=== PATIENT | male | born 1950 | race Caucasian/White ===

== ENCOUNTER 2018-04-24 11:00 | Inpatient (IN) ==
[2018-04-24] MEDS ORDERED: LACTULOSE 20 GM/30 ML UDCUP PO PRN (11:16)
[2018-04-24] MEDS ORDERED: ZALEPLON 5 MG CAPSULE PO PRN (11:16)
[2018-04-24] MEDS ORDERED: PROMETHAZINE 25 MG TABLET PO PRN (11:16)
[2018-04-24] MEDS ORDERED: ACETAMINOPHEN 325 MG TABLET PO PRN (11:16)
[2018-04-24] MEDS ORDERED: diphenhydrAMINE CAP 25 MG CAPSULE PO PRN (11:16)
[2018-04-24] MEDS ORDERED: DOCUSATE SODIUM 100 MG CAPSULE PO PRN (11:16)
[2018-04-24] MEDS ORDERED: MORPHINE 4 MG/1 ML VIAL IV PRN (11:16)
[2018-04-24] MEDS ORDERED: ONDANSETRON 4 MG/2 ML VIAL IV PRN (11:16)
[2018-04-24] MEDS ORDERED: guaiFENesin/DM ER 600-30 MG TABLET PO PRN (11:16)
[2018-04-24] MEDS ORDERED: MAGNESIUM SULF RIDER 2 GM in PREMIX 1 EACH IV PRN (11:16)
[2018-04-24] MEDS ORDERED: MAGNESIUM SULF RIDER 4 GM in PREMIX 1 EACH IV PRN (11:16)
[2018-04-24] MEDS ORDERED: BISACODYL 5 MG TABLET PO PRN (11:16)
[2018-04-24] MEDS ORDERED: POTASSIUM CHLORIDE 20 MEQ TABLET PO PRN (11:16)
[2018-04-24 12:21] LABS: Troponin I 0.016 NG/ML (0.00-0.045)
[2018-04-24] MEDS ORDERED: ceFAZolin 1,000 MG VIAL IRRIG ONE (12:24)
[2018-04-24] MEDS ORDERED: diphenhydrAMINE CAP 25 MG CAPSULE PO ONE (12:24)
[2018-04-24] MEDS ORDERED: DIAZEPAM 5 MG TABLET PO ONE (12:24)
[2018-04-24 12:29] LABS: Bilirubin,Total 0.7 MG/DL (0.2-1.0); Calcium 9.2 MG/DL (8.5-10.1); Potassium 5.1 MMOL/L (3.5-5.1); Risk Ratio 5.97; Thyroid Stimulating Hormone 3.83 uIU/ml (0.358-3.74); Total Protein 7.6 G/DL (6.4-8.3); VLDL CHOLESTEROL 47.6 MG/DL
[2018-04-24] MEDS ORDERED: DEXTROSE 5% NACL 0.45% 1,000 ML IV SCH (12:30)
[2018-04-24 13:39] LABS: Apearance,Urine CLEAR (Clear); Bilirubin,Urine Negative (Negative); Blood, Urine Small mg/dL (Negative); Glucose,Urine (UA) Negative (Negative); Hyaline Casts,Urine 1 /LPF (0-3); Ketones,Urine Negative (Negative); Nitrite,Urine Negative (Negative); Protein,Urine Negative; RBC,Urine <1 /HPF (0-4); Urine Color Straw (Yellow); Urine Specific Gravity 1.006 (1.001-1.035); Urine Urobilinogen < 2.0 EU/DL (0.2-1.0)
[2018-04-24] MEDS: ceFAZolin 1,000 MG in SYRINGE 1 EACH IV ONE ×2 (13:58→15:19)
[2018-04-24 14:30] LABS: Basophils # 0.1 10*3/uL (0.0-0.2); Basophils % 0.3 % (0.0-0.8); Eosinophils # 0.2 10*3/uL (0.0-0.87); Eosinophils % 1.1 % (0.00-10.9); Hematocrit 44.4 VOL% (42.0-52.0); Hemoglobin 13.9 GM/DL (14.0-18.0); Immature Granulocytes % 0.7 %; Immature Granulocytes Absolute 0.12 #; Lymphocytes # 3.3 10*3/uL (1.4-4.0); Lymphocytes % 19.2 % (21.2-54.2); Mean Corpuscular HGB Conc 31.3 GM/DL (32-36); Mean Corpuscular Hemoglobin 30 PG (27-34); Mean Corpuscular Volume 96.3 FL (87-102); Mean Platelet Volume 11.9 FL (9.6-12.0); Neutrophils # 12.6 10*3/uL (1.4-7.4); Neutrophils % 72.7 % (38.7-73.9); Platelet Count 268 T/CUMM (130-400); Red Blood Count 4.61 MC/CUMM (3.8-5.5); Red Cell Distribution Width 15.1 % (9.3-17.3); White Blood Count 17.3 T/CUMM (4-12)
[2018-04-24] MEDS ORDERED: LIDOCAINE 1%/EPI INJ 20 ML VIAL ONE (14:35)
[2018-04-24] MEDS ORDERED: HEPARIN/NACL 0.9% 2 UNITS/ML 500 ML IV ONE (14:35)
[2018-04-24] MEDS ORDERED: MIDAZOLAM 2 MG/2 ML VIAL ONE (14:42)
[2018-04-24] MEDS ORDERED: fentaNYL 100 MCG/2 ML VIAL ONE (14:43)
[2018-04-24] MEDS ORDERED: hydrALAZINE 20 MG/1 ML VIAL IV PRN (16:15)
[2018-04-25 03:42] LABS: Basophils % 0.3 % (0.0-0.8); Eosinophils # 0.1 10*3/uL (0.0-0.87); Eosinophils % 1.2 % (0.00-10.9); Hematocrit 43.1 VOL% (42.0-52.0); Hemoglobin 13.5 GM/DL (14.0-18.0); Immature Granulocytes % 0.4 %; Immature Granulocytes Absolute 0.04 #; Lymphocytes # 2.6 10*3/uL (1.4-4.0); Mean Corpuscular HGB Conc 31.3 GM/DL (32-36); Mean Corpuscular Hemoglobin 30 PG (27-34); Mean Corpuscular Volume 96.4 FL (87-102); Monocytes # 0.9 10*3/uL (0.11-0.8); Monocytes % 7.5 % (1.7-12.7); Neutrophils # 7.7 10*3/uL (1.4-7.4); Neutrophils % 67.6 % (38.7-73.9); Platelet Count 185 T/CUMM (130-400); Red Blood Count 4.47 MC/CUMM (3.8-5.5); Red Cell Distribution Width 15.1 % (9.3-17.3); White Blood Count 11.4 T/CUMM (4-12)
[2018-04-25 04:08] LABS: Troponin I 0.053 NG/ML (0.00-0.045)
[2018-04-25 04:23] LABS: Calcium 8.8 MG/DL (8.5-10.1); Osmolality,Calculated 285.4 MOS/KG (273-304); Potassium 4.2 MMOL/L (3.5-5.1)
[2018-04-25] MEDS ORDERED: TORSEMIDE 20 MG TABLET PO SCH (09:00)
[2018-04-25] MEDS ORDERED: LISINOPRIL 20 MG TABLET PO SCH (09:00)
[2018-04-25] MEDS ORDERED: POTASSIUM CHLORIDE 10 MEQ TABLET PO SCH (09:00)
[2018-04-25] MEDS ORDERED: ALLOPURINOL 300 MG TABLET PO SCH (09:00)
[2018-04-25] MEDS ORDERED: CLOPIDOGREL 75 MG TABLET PO SCH (09:00)
[2018-04-25] MEDS ORDERED: PANTOPRAZOLE 40 MG TABLET PO SCH (09:00)
[2018-04-25] MEDS ORDERED: ASPIRIN EC 325 MG TABLET PO SCH (09:00)
[2018-04-25] MEDS ORDERED: NIACIN 500 MG TABLET PO SCH (09:00)
[2018-04-25 11:43] VITALS: BP 151/59
== END 2018-04-25 11:02 | disposition home or self-care (01) | DRG 244 ==
LOC: N.CC 11:24
PROVIDERS: ADMIT Internal Medicine Cardiovascular Disease; ATTEND Internal Medicine Cardiovascular Disease

== ENCOUNTER 2019-10-05 08:21 | Inpatient (IN) ==
[2019-10-05] MEDS ORDERED: propofoL 200 MG/20 ML VIAL IV ONE ×2 (08:56→14:52)
[2019-10-05 09:00] LABS: Basophils # 0.1 10*3/uL (0.0-0.2); Basophils % 0.5 % (0.0-0.8); Eosinophils # 0.3 10*3/uL (0.0-0.87); Hematocrit 48.7 VOL% (42.0-52.0); Hemoglobin 15.5 GM/DL (14.0-18.0); Immature Granulocytes % 1.1 %; Immature Granulocytes Absolute 0.16 #; Lymphocytes # 4.6 10*3/uL (1.4-4.0); Mean Corpuscular HGB Conc 31.8 GM/DL (32-36); Mean Corpuscular Volume 96.2 FL (87-102); Mean Platelet Volume 10.1 FL (9.6-12.0); Neutrophils % 58.4 % (38.7-73.9); Platelet Count 252 T/CUMM (130-400); Red Blood Count 5.06 MC/CUMM (3.8-5.5); Red Cell Distribution Width 14.9 % (9.3-17.3); White Blood Count 14.7 T/CUMM (4-12)
[2019-10-05 09:10] LABS: PT Patient Result 10.3 SECS (9.8-11.9); Partial Thromboplastin Time 29.9 SECS (23.9-33.8)
[2019-10-05 09:20] LABS: Albumin 3.7 G/DL (3.4-5.0); Bilirubin,Total 0.6 MG/DL (0.2-1.0); Calcium 9.4 MG/DL (8.5-10.1); Osmolality,Calculated 266.5 MOS/KG (273-304); Total Protein 7.9 G/DL (6.4-8.3)
[2019-10-05] MEDS ORDERED: DIPH/TET/ACEL PERT BOOSTER VACCINE 0.5 ML VIAL IM ONE (09:20)
[2019-10-05] MEDS ORDERED: MORPHINE 4 MG/1 ML VIAL IV PRN ×2 (09:23)
[2019-10-05] MEDS ORDERED: ceFAZolin 2,000 MG in SYRINGE 1 EACH IV STA (09:38)
[2019-10-05] MEDS: LACTATED RINGERS 1,000 ML IV SCH ×2 (09:57→23:37)
[2019-10-05] MEDS ORDERED: SODIUM CHLORIDE 0.9% IV ONE (10:00)
[2019-10-05] MEDS ORDERED: GENTAMICIN IV ONE (10:00)
[2019-10-05] MEDS ORDERED: GENTAMICIN 80 MG/2 ML VIAL ONE (12:26)
[2019-10-05] MEDS ORDERED: LIDOCAINE 1% 5 ML VIAL ONE (13:36)
[2019-10-05] MEDS ORDERED: ROPIVACAINE 0.5% 30 ML VIAL ONE (13:36)
[2019-10-05] MEDS ORDERED: BACITRACIN OINT 0.9 GM PACK TOP ONE (13:38)
[2019-10-05] MEDS ORDERED: ONDANSETRON 4 MG/2 ML VIAL IV PRN ×2 (14:00→14:42)
[2019-10-05] MEDS ORDERED: MAGNESIUM HYDROXIDE SUSP 30 ML UDCUP PO PRN (14:00)
[2019-10-05] MEDS ORDERED: diphenhydrAMINE CAP 25 MG CAPSULE PO PRN (14:00)
[2019-10-05] MEDS ORDERED: HYDROmorphone 2 MG/1 ML VIAL ONE (14:41)
[2019-10-05] MEDS ORDERED: ONDANSETRON 4 MG/2 ML VIAL ONE ×2 (14:41→14:53)
[2019-10-05] MEDS ORDERED: HYDROmorphone 2 MG/1 ML VIAL IV PRN (14:42)
[2019-10-05] MEDS ORDERED: SEVOFLURANE 1 UNIT/15 MINUTE INH ONE (14:52)
[2019-10-05] MEDS ORDERED: PHENYLEPHRINE DRIP 20 MG/250 ML PREMIX IV ONE (14:52)
[2019-10-05] MEDS ORDERED: LIDOCAINE 2% 5 ML VIAL ONE (14:52)
[2019-10-05] MEDS ORDERED: DEXAMETHASONE 4 MG/1 ML VIAL ONE (14:53)
[2019-10-05] MEDS ORDERED: fentaNYL 100 MCG/2 ML VIAL ONE (14:53)
[2019-10-05] MEDS ORDERED: ePHEDrine 50 MG/ML AMP ONE (14:53)
[2019-10-05] MEDS ORDERED: MIDAZOLAM 2 MG/2 ML VIAL ONE (14:53)
[2019-10-05] MEDS ORDERED: KETOROLAC 30 MG/1 ML VIAL ONE (14:53)
[2019-10-05] MEDS ORDERED: PHENYLEPHRINE 1 MG/10 ML SYRINGE IV ONE (14:54)
[2019-10-05] MEDS ORDERED: ACETAMINOPHEN 1,000 MG/100 ML VIAL IV ONE (14:54)
[2019-10-05] MEDS ORDERED: LACTATED RINGERS 1,000 ML IV ONE (14:54)
[2019-10-05] MEDS ORDERED: ALBUTEROL/IPRATROPIUM 3 ML NEB RESP TX PRN (15:03)
[2019-10-05] MEDS ORDERED: ALBUTEROL/IPRATROPIUM 3 ML NEB RESP TX ONE (15:03)
[2019-10-05] MEDS: ceFAZolin 2,000 MG in PREMIX 1 EACH IV SCH (17:47)
[2019-10-05] MEDS: carvediloL 25 MG TABLET PO SCH (20:31)
[2019-10-06] MEDS: ceFAZolin 2,000 MG in PREMIX 1 EACH IV SCH ×3 (01:02→16:19)
[2019-10-06] MEDS: LACTATED RINGERS 1,000 ML IV SCH (03:05)
[2019-10-06 05:51] LABS: Basophils % 0.1 % (0.0-0.8); Hematocrit 41.1 VOL% (42.0-52.0); Hemoglobin 12.9 GM/DL (14.0-18.0); Immature Granulocytes % 0.8 %; Immature Granulocytes Absolute 0.13 #; Lymphocytes # 1.9 10*3/uL (1.4-4.0); Lymphocytes % 11.6 % (21.2-54.2); Mean Corpuscular HGB Conc 31.4 GM/DL (32-36); Mean Corpuscular Volume 98.3 FL (87-102); Mean Platelet Volume 10.1 FL (9.6-12.0); Monocytes % 8.6 % (1.7-12.7); Neutrophils % 78.9 % (38.7-73.9); Platelet Count 197 T/CUMM (130-400); Red Blood Count 4.18 MC/CUMM (3.8-5.5); Red Cell Distribution Width 14.9 % (9.3-17.3); White Blood Count 16.7 T/CUMM (4-12)
[2019-10-06 06:08] LABS: Calcium 8.6 MG/DL (8.5-10.1); Osmolality,Calculated 270.2 MOS/KG (273-304)
[2019-10-06] MEDS: carvediloL 25 MG TABLET PO SCH ×2 (08:16→20:54)
[2019-10-06] MEDS: TORSEMIDE 20 MG TABLET PO SCH (08:16)
[2019-10-06] MEDS: POTASSIUM CHLORIDE 10 MEQ TABLET PO SCH (08:16)
[2019-10-06] MEDS ORDERED: SODIUM CHLORIDE 0.9% IV SCH (10:00)
[2019-10-06] MEDS ORDERED: GENTAMICIN IV SCH (10:00)
[2019-10-07] MEDS: LACTATED RINGERS 1,000 ML IV SCH ×3 (00:47→09:57)
[2019-10-07] MEDS: ceFAZolin 2,000 MG in PREMIX 1 EACH IV SCH ×3 (01:17→17:25)
[2019-10-07 06:26] LABS: Basophils % 0.2 % (0.0-0.8); Eosinophils # 0.1 10*3/uL (0.0-0.87); Eosinophils % 0.4 % (0.00-10.9); Hematocrit 38.5 VOL% (42.0-52.0); Hemoglobin 12.3 GM/DL (14.0-18.0); Immature Granulocytes % 0.9 %; Immature Granulocytes Absolute 0.12 #; Lymphocytes # 3.1 10*3/uL (1.4-4.0); Lymphocytes % 23.1 % (21.2-54.2); Mean Corpuscular HGB Conc 31.9 GM/DL (32-36); Mean Corpuscular Volume 95.1 FL (87-102); Mean Platelet Volume 10.3 FL (9.6-12.0); Neutrophils % 63.4 % (38.7-73.9); Platelet Count 189 T/CUMM (130-400); Red Blood Count 4.05 MC/CUMM (3.8-5.5); Red Cell Distribution Width 15.1 % (9.3-17.3); White Blood Count 13.6 T/CUMM (4-12)
[2019-10-07 06:57] LABS: Calcium 9.2 MG/DL (8.5-10.1); Osmolality,Calculated 268.4 MOS/KG (273-304)
[2019-10-07] MEDS ORDERED: fentaNYL 100 MCG/2 ML VIAL ONE (07:22)
[2019-10-07] MEDS ORDERED: ROPIVACAINE 0.5% 30 ML VIAL ONE (07:22)
[2019-10-07] MEDS ORDERED: MIDAZOLAM 2 MG/2 ML VIAL ONE (07:22)
[2019-10-07] MEDS ORDERED: BACITRACIN OINT 0.9 GM PACK TOP ONE (08:21)
[2019-10-07] MEDS ORDERED: CLOPIDOGREL 75 MG TABLET PO SCH (09:00)
[2019-10-07] MEDS ORDERED: ASPIRIN EC 325 MG TABLET PO SCH (09:00)
[2019-10-07] MEDS ORDERED: LIDOCAINE 2% 5 ML VIAL ONE (09:13)
[2019-10-07] MEDS ORDERED: ONDANSETRON 4 MG/2 ML VIAL ONE (09:13)
[2019-10-07] MEDS ORDERED: DEXAMETHASONE 4 MG/1 ML VIAL ONE (09:13)
[2019-10-07] MEDS ORDERED: PHENYLEPHRINE 1 MG/10 ML SYRINGE IV ONE (09:13)
[2019-10-07] MEDS ORDERED: propofoL 200 MG/20 ML VIAL IV ONE (09:13)
[2019-10-07] MEDS ORDERED: SEVOFLURANE 1 UNIT/15 MINUTE INH ONE (09:14)
[2019-10-07] MEDS ORDERED: LACTATED RINGERS 1,000 ML IV ONE (09:14)
[2019-10-07] MEDS: ASPIRIN CHEW 81 MG TABLET PO SCH (10:07)
[2019-10-07] MEDS: NIACIN 500 MG TABLET PO SCH (10:07)
[2019-10-07] MEDS: lisinopriL 20 MG TABLET PO SCH (10:07)
[2019-10-07] MEDS: carvediloL 25 MG TABLET PO SCH ×2 (10:07→21:10)
[2019-10-07] MEDS: allopurinoL 300 MG TABLET PO SCH (10:08)
[2019-10-07] MEDS: POTASSIUM CHLORIDE 10 MEQ TABLET PO SCH (10:08)
[2019-10-07] MEDS: TORSEMIDE 20 MG TABLET PO SCH ×3 (10:14→21:09)
[2019-10-07] MEDS: SODIUM CHLORIDE 0.9% IV SCH (21:10)
[2019-10-07] MEDS: GENTAMICIN IV SCH (21:10)
[2019-10-08] MEDS: ceFAZolin 2,000 MG in PREMIX 1 EACH IV SCH ×3 (00:59→17:25)
[2019-10-08 05:47] LABS: Basophils % 0.1 % (0.0-0.8); Hemoglobin 11.7 GM/DL (14.0-18.0); Immature Granulocytes % 0.7 %; Lymphocytes # 2.4 10*3/uL (1.4-4.0); Lymphocytes % 16.6 % (21.2-54.2); Mean Corpuscular HGB Conc 31.6 GM/DL (32-36); Mean Corpuscular Volume 97.4 FL (87-102); Mean Platelet Volume 10.4 FL (9.6-12.0); Monocytes % 9.6 % (1.7-12.7); Platelet Count 197 T/CUMM (130-400); Red Cell Distribution Width 14.8 % (9.3-17.3); White Blood Count 14.2 T/CUMM (4-12)
[2019-10-08] MEDS: allopurinoL 300 MG TABLET PO SCH (09:30)
[2019-10-08] MEDS: ASPIRIN CHEW 81 MG TABLET PO SCH (09:30)
[2019-10-08] MEDS: TORSEMIDE 20 MG TABLET PO SCH ×2 (09:30→20:46)
[2019-10-08] MEDS: lisinopriL 20 MG TABLET PO SCH (09:31)
[2019-10-08] MEDS: carvediloL 25 MG TABLET PO SCH ×2 (09:31→21:29)
[2019-10-08] MEDS: CLOPIDOGREL 75 MG TABLET PO SCH (09:31)
[2019-10-08] MEDS: POTASSIUM CHLORIDE 10 MEQ TABLET PO SCH (09:31)
[2019-10-08] MEDS: NIACIN 500 MG TABLET PO SCH (09:31)
[2019-10-09] MEDS: ceFAZolin 2,000 MG in PREMIX 1 EACH IV SCH ×2 (00:57→08:51)
[2019-10-09 07:50] LABS: Calcium 9.2 MG/DL (8.5-10.1); Osmolality,Calculated 273.2 MOS/KG (273-304)
[2019-10-09] MEDS: TORSEMIDE 20 MG TABLET PO SCH (08:46)
[2019-10-09] MEDS: POTASSIUM CHLORIDE 10 MEQ TABLET PO SCH (08:47)
[2019-10-09] MEDS: allopurinoL 300 MG TABLET PO SCH (08:50)
[2019-10-09] MEDS: carvediloL 25 MG TABLET PO SCH (08:50)
[2019-10-09] MEDS: ASPIRIN CHEW 81 MG TABLET PO SCH (08:50)
[2019-10-09] MEDS: NIACIN 500 MG TABLET PO SCH (08:50)
[2019-10-09] MEDS: CLOPIDOGREL 75 MG TABLET PO SCH (08:51)
[2019-10-09] MEDS: lisinopriL 20 MG TABLET PO SCH (08:57)
[2019-10-09] MEDS ORDERED: lisinopriL 2.5 MG TABLET PO SCH (09:29)
[2019-10-09] MEDS: GENTAMICIN IV SCH (09:35)
[2019-10-09] MEDS: SODIUM CHLORIDE 0.9% IV SCH (09:35)
[2019-10-09 12:55] VITALS: BP 101/57
== END 2019-10-09 15:15 | disposition home health service (06) | DRG 464 ==
LOC: N.ED 08:21 → N.EDINP 09:31 → N.3E 09:48
PROVIDERS: ADMIT Orthopaedic Surgery; ATTEND Orthopaedic Surgery

== ENCOUNTER 2021-07-12 11:25 | Inpatient (IN) ==
[2021-07-12] MEDS ORDERED: HYDROmorphone 2 MG/1 ML VIAL ONE (11:47)
[2021-07-12] MEDS ORDERED: ONDANSETRON 4 MG/2 ML VIAL ONE ×2 (11:47→18:27)
[2021-07-12] MEDS ORDERED: ONDANSETRON 4 MG/2 ML VIAL IV STA (11:52)
[2021-07-12] MEDS ORDERED: HYDROmorphone 2 MG/1 ML VIAL IV STA ×3 (11:52→14:30)
[2021-07-12 12:33] LABS: Basophils % 0.2 % (0.0-0.8); Eosinophils % 0.1 % (0.00-10.9); Hemoglobin 15.3 GM/DL (14.0-18.0); Immature Granulocytes % 0.9 %; Immature Granulocytes Absolute 0.15 #; Lymphocytes # 1.8 10*3/uL (1.4-4.0); Lymphocytes % 10.3 % (21.2-54.2); Mean Corpuscular HGB Conc 31.9 GM/DL (32-36); Mean Corpuscular Volume 91.4 FL (87-102); Mean Platelet Volume 10.3 FL (9.6-12.0); Monocytes % 7.6 % (1.7-12.7); Neutrophils % 80.9 % (38.7-73.9); Platelet Count 224 T/CUMM (130-400); Red Blood Count 5.25 MC/CUMM (3.8-5.5); Red Cell Distribution Width 16.2 % (9.3-17.3); White Blood Count 17.2 T/CUMM (4-12)
[2021-07-12 12:41] LABS: PT Patient Result 11.2 SECS (10.5-12.0)
[2021-07-12 12:46] LABS: Osmolality,Calculated 270.1 MOS/KG (273-304); Potassium 3.8 MMOL/L (3.5-5.1)
[2021-07-12] MEDS ORDERED: ONDANSETRON 4 MG/2 ML VIAL IV PRN (14:11)
[2021-07-12] MEDS ORDERED: GLUCAGON 1 MG VIAL IM PRN (14:11)
[2021-07-12] MEDS ORDERED: DEXTROSE 10% 25 GM/250 ML BAG IV PRN (14:11)
[2021-07-12] MEDS ORDERED: DICLOFENAC 1% GEL 100 GM TUBE TOP PRN (14:58)
[2021-07-12] MEDS ORDERED: VANCOMYCIN INJ 1,750 MG in SODIUM CHLORIDE 0.9% 250 ML IV ONE (16:22)
[2021-07-12] MEDS ORDERED: ceFAZolin 2,000 MG/50 ML DUPLEX IV ONE (16:23)
[2021-07-12 17:35] LABS: Bilirubin,Urine Negative (Negative); Blood, Urine Moderate mg/dL (Negative); Glucose,Urine (UA) Negative (Negative); Ketones,Urine Negative (Negative); Nitrite,Urine Negative (Negative); Protein,Urine 100 MG/DL; RBC,Urine 40 /HPF (0-4); Urine Appearance CLEAR (Clear); Urine Color Yellow (Yellow); Urine Specific Gravity 1.015 (1.001-1.035); Urine Urobilinogen < 2.0 EU/DL (<2.0)
[2021-07-12] MEDS ORDERED: HYDROmorphone 2 MG/1 ML VIAL IV ONE (18:16)
[2021-07-12] MEDS ORDERED: ROCURONIUM 50 MG/5 ML VIAL IV ONE (18:27)
[2021-07-12] MEDS ORDERED: fentaNYL 100 MCG/2 ML VIAL ONE (18:27)
[2021-07-12] MEDS ORDERED: propofoL 200 MG/20 ML VIAL IV ONE (18:27)
[2021-07-12] MEDS ORDERED: LIDOCAINE 2% 5 ML VIAL ONE (18:27)
[2021-07-12] MEDS ORDERED: SEVOFLURANE 1 UNIT/15 MINUTE INH ONE ×2 (18:27→18:31)
[2021-07-12] MEDS ORDERED: ePHEDrine 50 MG/ML VIAL ONE (18:44)
[2021-07-12] MEDS ORDERED: PHENYLEPHRINE 1 MG/10 ML SYRINGE IV ONE (18:44)
[2021-07-12] MEDS ORDERED: ceFAZolin 1,000 MG VIAL ONE ×2 (19:18→19:25)
[2021-07-12] MEDS ORDERED: VANCOMYCIN 1,000 MG VIAL ONE (19:18)
[2021-07-12] MEDS ORDERED: VANCOMYCIN INJ 1,000 MG in SODIUM CHLORIDE 0.9% 250 ML IV ONE (19:19)
[2021-07-12] MEDS ORDERED: BACITRACIN OINT 0.9 GM PACK TOP ONE (19:21)
[2021-07-12] MEDS ORDERED: DEXMEDETOMIDINE 200 MCG/2 ML VIAL ONE (19:29)
[2021-07-12] MEDS ORDERED: TRANEXAMIC ACID 1,000 MG/10 ML VIAL ONE (20:02)
[2021-07-12] MEDS ORDERED: GLYCOPYRROLATE 0.4 MG/2 ML VIAL ONE (20:09)
[2021-07-12] MEDS ORDERED: NEOSTIGMINE 10 MG/10 ML VIAL ONE (20:10)
[2021-07-12] MEDS ORDERED: MORPHINE 2 MG/1 ML SYRINGE IV PRN (20:18)
[2021-07-12] MEDS ORDERED: MAGNESIUM HYDROXIDE SUSP 30 ML UDCUP PO PRN (20:18)
[2021-07-12] MEDS ORDERED: ROSUVASTATIN 10 MG TABLET PO SCH (21:00)
[2021-07-12] MEDS: POTASSIUM CHLORIDE INJ 40 MEQ in LACTATED RINGERS 1,000 ML IV SCH (22:10)
[2021-07-12] MEDS: DOCUSATE SODIUM 100 MG CAPSULE PO SCH (22:11)
[2021-07-12] MEDS: carvediloL 25 MG TABLET PO SCH (22:12)
[2021-07-12] MEDS: TORSEMIDE 20 MG TABLET PO SCH (22:12)
[2021-07-12] MEDS: MORPHINE 2 MG/1 ML SYRINGE IV PRN (22:29)
[2021-07-13] MEDS: ceFAZolin 2,000 MG/50 ML DUPLEX IV SCH ×2 (00:52→12:30)
[2021-07-13 05:51] LABS: Basophils % 0.3 % (0.0-0.8); Eosinophils % 0.3 % (0.00-10.9); Hematocrit 42.6 VOL% (42.0-52.0); Hemoglobin 13.4 GM/DL (14.0-18.0); Immature Granulocytes % 0.9 %; Immature Granulocytes Absolute 0.13 #; Lymphocytes # 1.6 10*3/uL (1.4-4.0); Mean Corpuscular HGB Conc 31.5 GM/DL (32-36); Mean Corpuscular Volume 93.6 FL (87-102); Mean Platelet Volume 11.2 FL (9.6-12.0); Monocytes % 8.7 % (1.7-12.7); Neutrophils % 78.8 % (38.7-73.9); Platelet Count 168 T/CUMM (130-400); Red Blood Count 4.55 MC/CUMM (3.8-5.5); Red Cell Distribution Width 16.4 % (9.3-17.3); White Blood Count 14.8 T/CUMM (4-12)
[2021-07-13] MEDS: POTASSIUM CHLORIDE INJ 40 MEQ in LACTATED RINGERS 1,000 ML IV SCH (06:19)
[2021-07-13 06:29] LABS: Albumin 2.9 G/DL (3.4-5.0); Bilirubin,Total 0.6 MG/DL (0.20-1.00); Calcium 8.8 MG/DL (8.5-10.1); Potassium 4.3 MMOL/L (3.5-5.1); Total Protein 6.7 G/DL (6.4-8.2)
[2021-07-13] MEDS: carvediloL 25 MG TABLET PO SCH ×2 (09:07→21:00)
[2021-07-13] MEDS: DOCUSATE SODIUM 100 MG CAPSULE PO SCH ×2 (09:07→21:00)
[2021-07-13] MEDS: POTASSIUM CHLORIDE 10 MEQ TABLET PO SCH ×2 (09:07→20:59)
[2021-07-13] MEDS: ASPIRIN EC 325 MG TABLET PO SCH (09:08)
[2021-07-13] MEDS: MULTIVITAMIN (CENTRUM) TABLET PO SCH (09:08)
[2021-07-13] MEDS: FERROUS SULFATE 325 MG TABLET PO SCH (09:08)
[2021-07-13] MEDS: lisinopriL 2.5 MG TABLET PO SCH (09:09)
[2021-07-13] MEDS: CLOPIDOGREL 75 MG TABLET PO SCH (09:09)
[2021-07-13] MEDS: NIACIN 500 MG TABLET PO SCH (09:11)
[2021-07-13] MEDS: TORSEMIDE 20 MG TABLET PO SCH ×2 (09:25→20:59)
[2021-07-13] MEDS: allopurinoL 300 MG TABLET PO SCH (09:25)
[2021-07-13] MEDS: PANTOPRAZOLE 40 MG TABLET PO SCH (12:30)
[2021-07-13] MEDS: MORPHINE 2 MG/1 ML SYRINGE IV PRN (13:00)
[2021-07-14 05:11] LABS: Basophils % 0.1 % (0.0-0.8); Eosinophils # 0.2 10*3/uL (0.0-0.87); Hematocrit 38.8 VOL% (42.0-52.0); Hemoglobin 12.2 GM/DL (14.0-18.0); Immature Granulocytes % 0.8 %; Immature Granulocytes Absolute 0.12 #; Lymphocytes # 2.1 10*3/uL (1.4-4.0); Lymphocytes % 13.7 % (21.2-54.2); Mean Corpuscular HGB Conc 31.4 GM/DL (32-36); Mean Corpuscular Volume 93.5 FL (87-102); Mean Platelet Volume 10.5 FL (9.6-12.0); Monocytes % 11.8 % (1.7-12.7); Neutrophils % 72.6 % (38.7-73.9); Platelet Count 193 T/CUMM (130-400); Red Blood Count 4.15 MC/CUMM (3.8-5.5); Red Cell Distribution Width 16.2 % (9.3-17.3); White Blood Count 15.5 T/CUMM (4-12)
[2021-07-14 05:40] LABS: Calcium 8.4 MG/DL (8.5-10.1); Osmolality,Calculated 269.1 MOS/KG (273-304); Potassium 3.9 MMOL/L (3.5-5.1)
[2021-07-14] MEDS: allopurinoL 300 MG TABLET PO SCH (09:13)
[2021-07-14] MEDS: TORSEMIDE 20 MG TABLET PO SCH ×2 (09:13→20:34)
[2021-07-14] MEDS: DOCUSATE SODIUM 100 MG CAPSULE PO SCH ×2 (09:13→20:34)
[2021-07-14] MEDS: POTASSIUM CHLORIDE 10 MEQ TABLET PO SCH ×2 (09:13→20:34)
[2021-07-14] MEDS: NIACIN 500 MG TABLET PO SCH (09:13)
[2021-07-14] MEDS: ASPIRIN EC 325 MG TABLET PO SCH (09:14)
[2021-07-14] MEDS: FERROUS SULFATE 325 MG TABLET PO SCH (09:14)
[2021-07-14] MEDS: MULTIVITAMIN (CENTRUM) TABLET PO SCH (09:14)
[2021-07-14] MEDS: CLOPIDOGREL 75 MG TABLET PO SCH (09:14)
[2021-07-14] MEDS: lisinopriL 2.5 MG TABLET PO SCH (09:14)
[2021-07-14] MEDS: carvediloL 25 MG TABLET PO SCH ×2 (09:14→20:34)
[2021-07-14] MEDS: PANTOPRAZOLE 40 MG TABLET PO SCH (09:14)
[2021-07-15 04:56] LABS: Basophils % 0.2 % (0.0-0.8); Eosinophils # 0.3 10*3/uL (0.0-0.87); Eosinophils % 2.1 % (0.00-10.9); Hematocrit 33.8 VOL% (42.0-52.0); Hemoglobin 10.7 GM/DL (14.0-18.0); Immature Granulocytes Absolute 0.14 #; Lymphocytes # 2.3 10*3/uL (1.4-4.0); Lymphocytes % 16.6 % (21.2-54.2); Mean Corpuscular HGB Conc 31.7 GM/DL (32-36); Mean Corpuscular Volume 92.1 FL (87-102); Mean Platelet Volume 10.7 FL (9.6-12.0); Monocytes % 12.1 % (1.7-12.7); Platelet Count 185 T/CUMM (130-400); Red Blood Count 3.67 MC/CUMM (3.8-5.5); Red Cell Distribution Width 15.9 % (9.3-17.3); White Blood Count 13.5 T/CUMM (4-12)
[2021-07-15] MEDS: NIACIN 500 MG TABLET PO SCH (09:11)
[2021-07-15] MEDS: lisinopriL 2.5 MG TABLET PO SCH (09:12)
[2021-07-15] MEDS: CLOPIDOGREL 75 MG TABLET PO SCH (09:12)
[2021-07-15] MEDS: ASPIRIN EC 325 MG TABLET PO SCH (09:12)
[2021-07-15] MEDS: POTASSIUM CHLORIDE 10 MEQ TABLET PO SCH ×2 (09:12→20:25)
[2021-07-15] MEDS: carvediloL 25 MG TABLET PO SCH ×2 (09:12→20:25)
[2021-07-15] MEDS: MULTIVITAMIN (CENTRUM) TABLET PO SCH (09:12)
[2021-07-15] MEDS: PANTOPRAZOLE 40 MG TABLET PO SCH (09:12)
[2021-07-15] MEDS: DOCUSATE SODIUM 100 MG CAPSULE PO SCH ×2 (09:13→20:25)
[2021-07-15] MEDS: FERROUS SULFATE 325 MG TABLET PO SCH (09:13)
[2021-07-15] MEDS: allopurinoL 300 MG TABLET PO SCH (09:13)
[2021-07-15] MEDS: TORSEMIDE 20 MG TABLET PO SCH ×2 (09:14→20:25)
[2021-07-16 06:13] LABS: Basophils % 0.2 % (0.0-0.8); Eosinophils # 0.4 10*3/uL (0.0-0.87); Eosinophils % 3.1 % (0.00-10.9); Hematocrit 36.1 VOL% (42.0-52.0); Hemoglobin 11.3 GM/DL (14.0-18.0); Immature Granulocytes % 0.9 %; Immature Granulocytes Absolute 0.11 #; Lymphocytes # 2.1 10*3/uL (1.4-4.0); Lymphocytes % 17.7 % (21.2-54.2); Mean Corpuscular HGB Conc 31.3 GM/DL (32-36); Mean Platelet Volume 10.6 FL (9.6-12.0); Monocytes % 10.4 % (1.7-12.7); Neutrophils % 67.7 % (38.7-73.9); Platelet Count 233 T/CUMM (130-400); Red Blood Count 3.88 MC/CUMM (3.8-5.5); Red Cell Distribution Width 15.9 % (9.3-17.3)
[2021-07-16 06:42] LABS: Calcium 8.4 MG/DL (8.5-10.1); Osmolality,Calculated 271.1 MOS/KG (273-304); Potassium 3.5 MMOL/L (3.5-5.1)
[2021-07-16] MEDS: NIACIN 500 MG TABLET PO SCH (08:50)
[2021-07-16] MEDS: allopurinoL 300 MG TABLET PO SCH (08:50)
[2021-07-16] MEDS: POTASSIUM CHLORIDE 10 MEQ TABLET PO SCH (08:50)
[2021-07-16] MEDS: ASPIRIN EC 325 MG TABLET PO SCH (08:50)
[2021-07-16] MEDS: MULTIVITAMIN (CENTRUM) TABLET PO SCH (08:50)
[2021-07-16] MEDS: TORSEMIDE 20 MG TABLET PO SCH (08:50)
[2021-07-16] MEDS: FERROUS SULFATE 325 MG TABLET PO SCH (08:50)
[2021-07-16] MEDS: carvediloL 25 MG TABLET PO SCH (08:51)
[2021-07-16] MEDS: DOCUSATE SODIUM 100 MG CAPSULE PO SCH (08:51)
[2021-07-16] MEDS: CLOPIDOGREL 75 MG TABLET PO SCH (08:51)
[2021-07-16] MEDS: PANTOPRAZOLE 40 MG TABLET PO SCH (08:51)
[2021-07-16] MEDS: lisinopriL 2.5 MG TABLET PO SCH (08:51)
[2021-07-16 12:11] VITALS: BP 120/47
== END 2021-07-16 15:05 | DRG 522 ==
LOC: EDBD → EDUNIT# → N.ED 11:25 → SUATTDRO 14:11 → N.3E 14:11
PROVIDERS: ADMIT Internal Medicine; ATTEND Internal Medicine